=== PATIENT | female | born 1945 ===

== ENCOUNTER 2018-06-21 07:38 | Outpatient (CLI) | payer OTHER ==
[~2018-06-21] VITALS: Ht 154.9 cm; Wt 57.2 kg
[2018-06-21] MEDS ORDERED: ZANTAC300 MG PO (09:23)
[2018-06-21] MEDS ORDERED: FLONASE16 GM NASAL (09:24)
== END 2018-06-21 08:00 | disposition home or self-care (01) ==
LOC: OFIC 805 07:38
DX: H90.3 Sensorineural hearing loss, bilateral (principal); J31.0 Chronic rhinitis; J37.0 Chronic laryngitis; R05 Cough; J34.2 Deviated nasal septum

== ENCOUNTER 2018-09-20 08:34 | Outpatient (CLI) | payer OTHER ==
[~2018-09-20] VITALS: Ht 152.4 cm; Wt 57.2 kg
[~2018-09-20 08:34] MED LIST: FLONASE16 GM NASAL; ZANTAC300 MG PO
[2018-09-20] MEDS ORDERED: FLONASE16 GM NASAL (12:30)
[2018-09-20] MEDS ORDERED: ZANTAC150 M3 PO (12:30)
== END 2018-09-20 08:50 | disposition home or self-care (01) ==
LOC: OFIC 805 08:34
DX: H90.3 Sensorineural hearing loss, bilateral (principal); J31.0 Chronic rhinitis; J37.0 Chronic laryngitis; R05 Cough; J34.2 Deviated nasal septum